=== PATIENT | female | born 1995 | race Caucasian/White ===

== ENCOUNTER 2019-02-11 19:23 | Emergency (ER) | payer OTHER ==
[2019-02-11 19:38] VITALS: BP 126/76
--- NOTE | 2019-02-11 19:52 | UC ---
Skin Complaint HPI - HPI Summary HPI Summary: 23 yo female with expanding bullseye rash on left thigh noted a couple of days ago no constitutional symptoms no know tick bite but patient states she is an outdoors person - History of Current Complaint Chief Complaint: UCSkin Time Seen by Provider: 02/11/19 19:44 Stated Complaint: RASH Hx Obtained From: Patient Onset/Duration: Gradual Onset, Lasting Days Timing: Constant Onset Severity: Mild Current Severity: Moderate Pain Intensity: 0 Pain Scale Used: 0-10 Numeric Location: Discrete Character: Redness, Raised - slightly Aggravating Factor(s): Nothing Alleviating Factor(s): Nothing Associated Signs & Symptoms: Positive: Rash - Allergy/Home Medications Allergies/Adverse Reactions: Allergies Allergy/AdvReac Type Severity Reaction Status Date / Time Sulfa (Sulfonamide Allergy Unknown Unknown Verified 02/11/19 19:38 Antibiotics) Reaction Details PMH/Surg Hx/FS Hx/Imm Hx Previously Healthy: Yes - Surgical History Surgical History: Yes Surgery Procedure, Year, and Place: eyebrow - Family History Known Family History: Positive: Cardiac Disease, Hypertension, Diabetes - Social History Alcohol Use: Daily Substance Use Type: Marijuana Smoking Status (MU): Light Every Day Tobacco Smoker Type: Cigarettes, eCigarettes Review of Systems All Other Systems Reviewed And Are Negative: Yes Constitutional: Positive: Negative Skin: Positive: Rash Eyes: Positive: Negative ENT: Positive: Negative Respiratory: Positive: Negative Cardiovascular: Positive: Negative Gastrointestinal: Positive: Negative Genitourinary: Positive: Negative Motor: Positive: Negative Neurovascular: Positive: Negative Musculoskeletal: Positive: Negative Neurological: Positive: Negative Psychological: Positive: Negative Physical Exam Triage Information Reviewed: Yes Appearance: Well-Appearing, No Pain Distress, Well-Nourished Vital Signs: Initial Vital Signs Temp 99.5 F 02/11/19 19:33 Pulse 78 02/11/19 19:33 Resp 18 02/11/19 19:33 BP 126/76 02/11/19 19:33 Pulse Ox 100 02/11/19 19:33 Vital Signs Reviewed: Yes Eyes: Positive: Conjunctiva Clear ENT: Positive: Hearing grossly normal, Uvula midline. Negative: Nasal congestion, Nasal drainage, Tonsillar swelling, Tonsillar exudate Neck: Positive: Supple, Nontender, No Lymphadenopathy Respiratory: Positive: Lungs clear, Normal breath sounds, No respiratory distress, No accessory muscle use Cardiovascular: Positive: RRR, No Murmur Musculoskeletal: Positive: ROM Intact, No Edema Neurological: Positive: Alert Psychological Exam: Normal Skin Exam: Other - 8x12 ovoid bullseye rash c/w erythema migrans Course/Dx - Diagnoses Provider Diagnosis: Lyme disease, Erythema migrans (Lyme disease) Discharge ED - Sign-Out/Discharge Documenting (check all that apply): Patient Departure All imaging exams completed and their final reports reviewed: No Studies - Discharge Plan Condition: Stable Disposition: HOME Prescriptions: DOXYcycline CAP(*) [DOXYcycline 100MG CAP(*)] 100 mg PO BID #28 cap Patient Education Materials: Lyme Disease (ED) Referrals: [facility]YSICIAN REFERRAL [Outside] - 2 Weeks - Billing Disposition and Condition Condition: STABLE Disposition: Home
== END 2019-02-11 20:02 | disposition home or self-care (01) ==
LOC: UCEAST 19:23
DX: A69.20 Lyme disease, unspecified (principal); Z88.2 Allergy status to sulfonamides
CPT/HCPCS: 99202; G0463

== ENCOUNTER 2019-04-02 12:48 | Inpatient (IN) | payer OTHER ==
--- NOTE | 2019-04-02 13:25 | ED ---
Psychiatric Complaint - HPI Summary HPI Summary: Pt is a 24 y/o F presenting to the ED brought in by EMS for a psychiatric complaint. Pts partner of many years recently broke up with her, leaving her with all of the financial responsibility for things that she cannot pay for. She tends to drive when she is having a panic attack to try and calm down, but ends up increasing her speed and having thoughts about driving off of the road. She was at her scheduled therapy appointment today when they asked what was stopping her from driving off the road, and she said the guardrail, as a morbid joke per the pt. She has been depressed throughout her life but denies any suicide attempts, hallucinations, or homicidal ideations. She has some thoughts sometimes about hurting others and herself, but does not think she would go through with it. She denies myalgia, vomiting, or diarrhea. Medications reviewed. Allergies noted. - History Of Current Complaint Chief Complaint: EDSuicidal Time Seen by Provider: 04/02/19 12:51 Hx Obtained From: Patient Onset/Duration: Gradual Onset, Lasting Days, Still Present, Worse Since - partner broke up w/ her, financial stressor Timing: Days Severity Initially: Moderate Severity Currently: Moderate Character: Depressed Aggravating Factor(s): Recent Stress Alleviating Factor(s): Nothing Associated Signs And Symptoms: Positive: Negative Related History: Positive For: Prior Psychiatric Issues Has Suicidal: Reports: Thoughts, With A Plan Has Homicidal: Denies: Thoughts Recent Stressor(s): no finances, partner broke up with her - Allergies/Home Medications Allergies/Adverse Reactions: Allergies Allergy/AdvReac Type Severity Reaction Status Date / Time Sulfa (Sulfonamide Allergy Unknown Unknown Verified 02/11/19 19:38 Antibiotics) Reaction Details Home Medications: Home Medications Estradiol (NF) 1 mg SL DAILY 04/02/19 [History Confirmed 04/02/19] Spironolactone (NF) [Spironolactone 50 MG (NF)] 50 mg PO BID 04/02/19 [History Confirmed 04/02/19] PMH/Surg Hx/FS Hx/Imm Hx Previously Healthy: Yes Endocrine/Hematology History: Denies: Hx Diabetes, Hx Thyroid Disease Cardiovascular History: Denies: Hx Hypertension Respiratory History: Denies: Hx Asthma, Hx Chronic Obstructive Pulmonary Disease (COPD) GI History: Denies: Hx Ulcer - Surgical History Surgery [facility], [facility] Infectious Disease History: No Infectious Disease History: Denies: Hx Hepatitis, Hx Human Immunodeficiency Virus (HIV), Traveled Outside the [place] in Last 30 Days - Family History Known Family History: Positive: Cardiac Disease, Hypertension, Diabetes - Social History Alcohol Use: Daily Hx Substance Use: Yes Substance Use Type: Reports: Marijuana Hx Tobacco Use: Yes Smoking Status (MU): Light Every Day Tobacco Smoker Type: Cigarettes, eCigarettes Review of Systems Negative: Vomiting, Diarrhea Negative: Myalgia Neurological: Negative - hallucinations Psychological: Other - panic attacks, some thoughts of hurting herself/others Positive: Anxious, Depressed All Other Systems Reviewed And Are Negative: Yes Physical Exam - Summary Physical Exam Summary: Constitutional: Well-developed, Well-nourished, Alert. (-) Distressed Skin: Warm, Dry HENT: Normocephalic; Atraumatic Eyes: Conjunctiva normal Neck: Musculoskeletal ROM normal neck. (-) JVD, (-) Stridor, (-) Tracheal deviation Cardio: Rhythm regular, rate normal, Heart sounds normal; Intact distal pulses; Radial pulses are 2+ and symmetric. (-) Murmur Pulmonary/Chest wall: Effort normal. (-) Respiratory distress, (-) Wheezes, (-) Rales Abd: Soft, (-) tenderness, (-) Distension, (-) Guarding, (-) Rebound Musculoskeletal: (-) Edema Lymph: (-) Cervical adenopathy Neuro: Alert, Oriented x3 Psych: Mood and affect tearful Triage Information Reviewed: Yes Vital Signs On Initial Exam: Initial Vitals Temp Pulse Resp BP Pulse Ox 98.7 F 90 18 118/74 100 04/02/19 13:03 04/02/19 13:03 04/02/19 13:03 04/02/19 13:03 04/02/19 13:03 Vital Signs Reviewed: Yes Procedures - Sedation Patient Received Moderate/Deep Sedation with Procedure: No Diagnostics - Vital Signs Vital Signs Temp Pulse Resp BP Pulse Ox 04/02/19 13:03 98.7 F 90 18 118/74 100 - Laboratory Result Diagrams: 04/02/19 13:46 Lab Statement: Any lab studies that have been ordered have been reviewed, and results considered in the medical decision making process. Re-Evaluation - Re-Evaluation 1st re-eval Re-Evaluation Time: 17:15 Change: Unchanged Comment: Pt will be voluntarily admitted as per Dr. Julien with dx of adjustment disorder. Course/Dx - Course Course Of Treatment: Patient is here with worsening depressive symptoms and suicidal thoughts. Patient was medically cleared by myself. Patient was evaluated by psychiatry who recommended voluntary admission. - Differential Dx/Clinical Impression Provider Diagnosis: Adjustment disorder Discharge ED - Sign-Out/Discharge Documenting (check all that apply): Patient Departure - Discharge Plan Condition: Stable Disposition[place] [place]illing Disposition and Condition Condition: STABLE Disposition: Psychiatric Facility [facility] [place] - Attestation Statements Document Initiated by Leolaibe: Yes Documenting Scribe: Lidia Brar Provider For Whom Harry is Documenting (Include Credential): Jsoe Johnson MD. Scribe Attestation: Lidai Hopper, scribed for Jose Johnson MD. on 04/02/19 at 1927. Scribe Documentation Reviewed: Yes Provider Attestation: The documentation as recorded by the Lidia olguin accurately reflects the service I personally performed and the decisions made by , Jose Johnson MD. Status of Scribe Document: Viewed
[2019-04-02 14:11] LABS: ALT 17 U/L (7-52); AST 25 U/L (13-39); Albumin 4.8 g/dL (3.2-5.2); Albumin/Globulin Ratio 1.8 (1-3); Alkaline Phosphatase 49 U/L (34-104); Anion Gap 5 mmol/L (2-11); BUN/Creatinine Ratio 7.1 (8-20); Blood Urea Nitrogen 7 mg/dL (6-24); CO2 Carbon Dioxide 31 mmol/L (22-32); Calcium 9.9 mg/dL (8.6-10.3); Chloride 104 mmol/L (101-111); EGFR African American 82.7 (>60); EGFR Non-African American 68.3 (>60); Globulin 2.6 g/dL (2-4); Glucose 90 mg/dL (70-100); Potassium 4.2 mmol/L (3.5-5.0); Sodium 140 mmol/L (135-145); Total Protein 7.4 g/dL (6.4-8.9)
[2019-04-02 14:16] LABS: HCG Pregnancy < 0.60 mIU/mL
[2019-04-02 14:26] LABS: Acetaminophen < 15 mcg/mL; Alcohol < 10 mg/dL (<10)
[2019-04-02 15:16] LABS: Urine Appearance Clear; Urine Bilirubin Negative (Negative); Urine Blood Negative (Negative); Urine Color Yellow; Urine Glucose Negative (Negative); Urine Ketones Negative (Negative); Urine Nitrite Negative (Negative); Urine Protein Negative (Negative); Urine Specific Gravity 1.005 (1.010-1.030); Urine Urobilinogen Negative (Negative)
[2019-04-02 15:36] LABS: Urine Benzodiazepine Screen None Detected (None Detect); Urine Opiates Screen None Detected (None Detect)
[2019-04-02] MEDS ORDERED: Acetaminophen TAB* 325 MG PO PRN (16:46)
[2019-04-02] MEDS ORDERED: Nicotine PATCH 14 MG/24 HR* PATCH TRANSDERM ONE (17:37)
[2019-04-02] MEDS: CMCS:Estradiol TAB(NF) 1 MG TAB PO SCH (21:06)
[2019-04-02] MEDS: Spironolactone TAB* 25 MG PO SCH (21:06)
[2019-04-03 08:42] LABS: HDL Cholesterol 49.6 mg/dL
[2019-04-03] MEDS: Nicotine PATCH 21 MG/24 HR* PATCH TRANSDERM SCH (08:45)
[2019-04-03] MEDS: CMCS:Estradiol TAB(NF) 1 MG TAB PO SCH ×2 (08:45→21:41)
[2019-04-03] MEDS: Spironolactone TAB* 25 MG PO SCH ×2 (08:47→20:35)
[2019-04-03] MEDS: Nicotine* 2MG (FRUIT FLAVOR) GUM PO PRN ×2 (15:05→18:44)
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
[2019-04-03] MEDS: traZODone TAB* 50 MG TAB PO SCH (20:35)
[2019-04-03] MEDS: Nicotine Patch Removal NOTE PATCH OFF SCH (21:13)
[2019-04-04] MEDS: CMCS:Estradiol TAB(NF) 1 MG TAB PO SCH ×2 (08:35→20:43)
[2019-04-04] MEDS: Spironolactone TAB* 25 MG PO SCH ×2 (08:35→20:43)
[2019-04-04] MEDS: Nicotine* 2MG (FRUIT FLAVOR) GUM PO PRN ×4 (08:35→19:11)
[2019-04-04] MEDS: Nicotine PATCH 21 MG/24 HR* PATCH TRANSDERM SCH (08:36)
--- NOTE | 2019-04-04 12:55 | PN ---
Subjective - Subjective Date of Service: 04/04/19 Service Type: [id number] Hosp care 15 min low complexity Subjective: Patient endorses anxiety and is circumstantial about interactions with Tia, partner of nearly 7 years. Patient is voicing vague violent ideation and passive wish. She reports feeling safe on the unit. She is encouraged to complete MMPI prior to further medication recommendations. Objective - General Observations Appearance: Unkempt Stature: Thin Posture: WNL Eye Contact: Average Behavior/Activity: WNL - Interaction Observations Attitude Towards Examiner: Cooperative Stated Mood: Dysphoric Affect: Full Speech Pattern/Tone: Clear, Appropriate, Normal Volume Thought Process: Circumstantial Perception: WNL Thought Content: Preoccupation/Ruminations, Depressive, Self-Deprecatory Thought Process: Lethality: Passive Wish Hallucination Type: Denies Delusion Type: Denies - Cognitive Function Orientation: A&O x 4 Level of Consciousness: Alert Cognition: WNL Estimated Intelligence: Normal Insight: Mostly Blames Others for Problems Judgment Within Normal Limits: No Ability to Make Reasonable Decisions: Moderately Impaired - Medication Compliance Cooperative with Inpatient Medication Regimen: Yes - Group Participation Participates in Group Activities: Yes Assessment - Assessment Merits Inpatient Hospitalization: For Immediate Safety, For Stabilization, Diagnosis Determination Inpatient DSM-V Dx: F33.8 Clinical Impression: 24yo white, transgender male to female, tenuously domiciled, unemployed who presented to ED with SI/HI/. Her partner of nearly 7 years suddenly broke up with her and now she must find her own housing and income. She is working on an MMPI for diagnostic clarification. She merits hospitalization for immediate safety and stabilization. Plan - Plan Treatment Plan: Name: KEEGAN BETH Birthdate: 1995 [id number] continue acute intensive psychiatric treatment. may decrease to q30min and allow staff pass/computer use per RN discretion. start clonidine 0.1mg BID prn anxiety and trazodone 50mg qhs prn insomnia. awaiting MMPI results. Continued Medication Management: Start Medication Medications: Current Medications Acetaminophen (Tylenol Tab*) 650 mg PO Q4H PRN PRN Reason: for pain; or Temp >101 F Al Hydrox/Mg Hydrox/Simethicone (Maalox Plus*) 30 ml PO Q4H PRN PRN Reason: INDIGESTION Clonidine HCl (Catapres Tab*) 0.1 mg PO BID PRN PRN Reason: ANXIETY Estradiol (Estradiol Tab(Nf)) 1 mg PO BID [facility] Last Admin: 04/04/19 08:35 Dose: 1 mg Nicotine (Nicotine Patch 21 Mg/24 Hr*) 1 patch TRANSDERM DAILY [facility] Last Admin: 04/04/19 08:36 Dose: Not Given Nicotine Polacrilex (Nicotine Gum*) 2 mg PO Q2H PRN PRN Reason: CRAVING Last Admin: 04/04/19 08:35 Dose: 2 mg Pharmacy Profile Note (Nicotine Patch Removal Note*) 1 note PATCH OFF 2099 [facility] Last Admin: 04/03/19 21:13 Dose: 1 note Spironolactone (Aldactone Tab*) 50 mg PO BID [facility] Last Admin: 04/04/19 08:35 Dose: 50 mg Trazodone HCl (Desyrel Tab*) 50 mg PO BEDTIME [facility] Last Admin: 04/03/19 20:35 Dose: 50 mg - Discharge Plan Discharge Plan: Inpatient Hospitalization
[2019-04-04] MEDS: cloNIDine TAB* 0.1 MG PO PRN (15:58)
[2019-04-04] MEDS: traZODone TAB* 50 MG TAB PO SCH (20:43)
[2019-04-04] MEDS: Nicotine Patch Removal NOTE PATCH OFF SCH (21:24)
[2019-04-05] MEDS: Spironolactone TAB* 25 MG PO SCH ×2 (09:31→21:10)
[2019-04-05] MEDS: cloNIDine TAB* 0.1 MG PO PRN ×2 (09:32→18:02)
[2019-04-05] MEDS: CMCS:Estradiol TAB(NF) 1 MG TAB PO SCH ×2 (09:33→21:10)
[2019-04-05] MEDS: Nicotine PATCH 21 MG/24 HR* PATCH TRANSDERM SCH (09:33)
[2019-04-05] MEDS: Nicotine* 2MG (FRUIT FLAVOR) GUM PO PRN ×4 (09:35→17:57)
[2019-04-05] MEDS: Al Hydrox/Mg Hydrox/Simet LIQ* 30 ML UDC PO PRN (21:11)
[2019-04-05] MEDS: traZODone TAB* 50 MG TAB PO SCH (21:11)
[2019-04-05] MEDS: Nicotine Patch Removal NOTE PATCH OFF SCH (21:12)
[2019-04-06] MEDS: Nicotine* 2MG (FRUIT FLAVOR) GUM PO PRN ×3 (07:49→18:05)
[2019-04-06] MEDS: Spironolactone TAB* 25 MG PO SCH ×2 (09:00→21:02)
[2019-04-06] MEDS: cloNIDine TAB* 0.1 MG PO PRN ×2 (09:00→17:57)
[2019-04-06] MEDS: CMCS:Estradiol TAB(NF) 1 MG TAB PO SCH ×2 (09:02→21:02)
[2019-04-06] MEDS: Nicotine PATCH 21 MG/24 HR* PATCH TRANSDERM SCH (09:04)
[2019-04-06] MEDS: Al Hydrox/Mg Hydrox/Simet LIQ* 30 ML UDC PO PRN (17:57)
[2019-04-06] MEDS: traZODone TAB* 50 MG TAB PO SCH (21:02)
[2019-04-06] MEDS: Nicotine Patch Removal NOTE PATCH OFF SCH (21:35)
[2019-04-07] MEDS: Nicotine* 2MG (FRUIT FLAVOR) GUM PO PRN ×5 (04:45→17:56)
[2019-04-07] MEDS: Nicotine PATCH 21 MG/24 HR* PATCH TRANSDERM SCH (09:19)
[2019-04-07] MEDS: Spironolactone TAB* 25 MG PO SCH ×2 (09:20→20:41)
[2019-04-07] MEDS: CMCS:Estradiol TAB(NF) 1 MG TAB PO SCH ×2 (09:20→21:42)
[2019-04-07] MEDS: cloNIDine TAB* 0.1 MG PO PRN (11:55)
--- NOTE | 2019-04-07 16:32 | PN ---
Subjective - Subjective Date of Service: 04/07/19 Service Type: 06857 Hosp care 25 min moderate complexity Subjective: Keegan continues to verbalize violent thoughts towards her Ex-BF and thinks about setting his car on fire. Also complains of racing thoughts, poor attention and concentration. Otherwise appears happy in the milieu with peers. Willing to consider mood stabilizer. [place] wasn't a good choice due to taking antidiuratics. Objective - General Observations Appearance: Unkempt Appears Stated Age: Yes Stature: Thin, Short Posture: WNL Eye Contact: Average Behavior/Activity: Accelerated - Interaction Observations Attitude Towards Examiner: Cooperative Stated Mood: Elevated, Expansive Affect: Bright Speech Pattern/Tone: Clear, Appropriate Thought Process: Coherent, Goal Directed Perception: WNL Thought Content: WNL Thought Process: Lethality: Homicidal Ideation Hallucination Type: Denies Delusion Type: Denies - Cognitive Function Orientation: A&O x 4 Level of Consciousness: Awake, Alert, Appropriate Cognition: WNL Estimated Intelligence: Normal Insight: Mostly Blames Others for Problems Judgment Within Normal Limits: No Ability to Make Reasonable Decisions: Serverely Impaired - Medication Compliance Cooperative with Inpatient Medication Regimen: Yes - Group Participation Participates in Group Activities: Yes Assessment - Assessment Merits Inpatient Hospitalization: For Immediate Safety, For Stabilization, For Ongoing Evaluation, Pending Safe DC Plan Inpatient DSM-V Dx: F33.8 Clinical Impression: 24yo white, transgender male to female, tenuously domiciled, unemployed who presented to ED with SI/HI/. Her partner of nearly 7 years suddenly broke up with her and now she must find her own housing and income. She is working on an MMPI for diagnostic clarification. She merits hospitalization for immediate safety and stabilization. Plan - Plan Treatment Plan: Name: KEEGAN BETH Birthdate: 1995 [id number] continue acute intensive psychiatric treatment. may decrease to q30min and allow staff pass/computer use per RN discretion. start clonidine 0.1mg BID prn anxiety and trazodone 50mg qhs prn insomnia. awaiting MMPI results. Continued Medication Management: Start Medication Medications: Current Medications Acetaminophen (Tylenol Tab*) 650 mg PO Q4H PRN PRN Reason: for pain; or Temp >101 F Al Hydrox/Mg Hydrox/Simethicone (Maalox Plus*) 30 ml PO Q4H PRN PRN Reason: INDIGESTION Last Admin: 04/06/19 17:57 Dose: 30 ml Clonidine HCl (Catapres Tab*) 0.1 mg PO BID PRN PRN Reason: ANXIETY Last Admin: 04/07/19 11:55 Dose: 0.1 mg Divalproex Sodium (Depakote Dr Tab(*)) 250 mg PO BID [facility] Estradiol (Estradiol Tab(Nf)) 1 mg PO BID [facility] Last Admin: 04/07/19 09:20 Dose: 1 mg Nicotine (Nicotine Patch 21 Mg/24 Hr*) 1 patch TRANSDERM DAILY [facility] Last Admin: 04/07/19 09:19 Dose: Not Given Nicotine Polacrilex (Nicotine Gum*) 2 mg PO Q2H PRN PRN Reason: CRAVING Last Admin: 04/07/19 14:47 Dose: 2 mg Pharmacy Profile Note (Nicotine Patch Removal Note*) 1 note PATCH OFF 2100 [facility] Last Admin: 04/06/19 21:35 Dose: Not Given Spironolactone (Aldactone Tab*) 50 mg PO BID [facility] Last Admin: 04/07/19 09:20 Dose: 50 mg Trazodone HCl (Desyrel Tab*) 50 mg PO BEDTIME [facility] Last Admin: 04/06/19 21:02 Dose: 50 mg - Discharge Plan Discharge Plan: Outpatient Follow Up Outpatient Program: [facility]
[2019-04-07] MEDS: traZODone TAB* 50 MG TAB PO SCH (20:41)
[2019-04-07] MEDS: Divalproex DR TAB(*) 250 MG PO SCH (20:41)
[2019-04-07 20:47] VITALS: BP 108/64
[2019-04-07] MEDS ORDERED: Lithium Carbonate ER* 450 MG TAB.ER PO SCH (21:00)
[2019-04-07] MEDS: Nicotine Patch Removal NOTE PATCH OFF SCH (21:42)
[2019-04-08] MEDS: Nicotine* 2MG (FRUIT FLAVOR) GUM PO PRN ×2 (02:20→09:09)
[2019-04-08] MEDS: Nicotine PATCH 21 MG/24 HR* PATCH TRANSDERM SCH (08:57)
[2019-04-08] MEDS: Spironolactone TAB* 25 MG PO SCH (08:57)
[2019-04-08] MEDS: CMCS:Estradiol TAB(NF) 1 MG TAB PO SCH (08:58)
[2019-04-08] MEDS: Divalproex DR TAB(*) 250 MG PO SCH (08:58)
[2019-04-08] MEDS ORDERED: Escitalopram * 10 MG TAB PO SCH (11:00)
--- NOTE | 2019-04-10 18:43 | DS ---
CC: Dr. Gandhi; [facility] * DISCHARGE SUMMARY: DATE OF ADMISSION: 04/02/19 DATE OF DISCHARGE: 04/08/19 SUPERVISING PHYSICIAN: Bladimir Julien MD * (DICTATED BY TYLER DUEÑAS NP) DISCHARGE DIAGNOSES: Major depressive disorder and adjustment disorder with disturbance of emotions and conduct. CONDITION AT TIME OF DISCHARGE: Improved. The patient is euthymic with bright affect. She has been participating fully in unit programming and leisure activity. She is noted to be social, interactive with peers and generally pleasant to be around. She denied suicidal ideation. She has made statements in regards to violent ideation towards her ex-girlfriend for example she made statements of wanting to set her car on fire. The patient reported that these were just thoughts and was observed to interact positively with this woman when she visited. Tia was notified of the patient's statement and was not concerned and expressed that this is not a new occurrence. The patient reports desire to be discharged and is agreeable to recommendations to continue with therapy and with primary care provider. The patient is discharged to home. MENTAL STATUS EXAM: Karen payan goes by Trinidad is a 24-year-old transgender male to female who appears slightly younger than stated age. She is well groomed with long dreadlocked hair. She has meticulous eye makeup and is casually dressed in her own clothing. She is alert and oriented x3. Eye contact is good. Speech is soft, articulate and spontaneous. Concentration good. Memory 3/3. Mood is euthymic with bright affect. No abnormal psychomotor activity noted. Thought process is logical and goal directed and coherent. Thought content is negative for suicidal ideation or passive wish. She denies HI or . She denies auditory or visual hallucinations. There is no delusional thought content noted throughout her hospitalization. Insight and judgment are fair, improved. She appears to have average intellect and her fund of knowledge is adequate. Instruction given to patient: A. Medications: 1. Escitalopram 10 mg p.o. daily. 2. Trazodone 50 mg p.o. bedtime. 3. Clonidine 0.1 mg p.o. daily. 4. She will resume Spironolactone 50 mg p.o. b.i.d. along with estradiol 1 mg b.i.d. B. Diet: Regular. C. Activity: Ambulation as tolerated. She declines tobacco cessation assistance. There are no pending labs or diagnostic studies. D. Followup care: The patient will return to [facility] and has already done so at the time of this dictation. She will return to Dr. Gandhi for primary care next appointment on 04/15/19. E. Substance use followup is not applicable. HOSPITAL COURSE: Part A. Reason for admission: The patient presented to the emergency department after an appointment with her outpatient therapist where she disclosed suicidal ideation and various plans. HISTORY OF PRESENT ILLNESS: Karen. who prefers to go by Trinidad. is a 24-year- old transgender male to female tenuously domiciled unemployed who presented to the emergency department after an appointment with [facility] therapist Marion Noyola. The patient has been transitioning since approximately age 16 or 17. She legally changed her name from Jim to Karen. She reports she has been partnered with a woman named Amy for nearly 7 years. She states that Amy broke up with her out of the blue around her own birthday, which was [birth year]. The patient reports she did not have any precursor that this was happening. She states that Amy stopped her own medicines about a month ago and was also taking prednisone for asthma and in the past Amy has been unlike herself when doing the same. She states she is not sure why Amy broke up with her and that all of her reasons have been changing. Trinidad has been a co-parent for Amy's daughter Deloris who is now almost 4 years old. The patient states that she has been primarily a [id number] parent and today was planning to turn in resumes and job applications and go to [facility] for services, however, she was transported to the emergency department due to suicidal ideation. She states she started seeing a therapist at [facility] last week and has had 3 appointments. Yesterday, she was not able to participate in safety planning. She denies suicide attempt. She reports that she has had suicidal ideation intermittently since fifth grade and endorses being diagnosed with depression at that time. She reports a history of insomnia since childhood. She endorses daily panic attacks, racing thoughts that she describes are as fast as machine gun fire. She reports recent hypersomnia and other times frequent waking. She states that she has had decreased appetite and weight loss especially when stressed and that she is prone to ulcers. She has a history of self-harm behaviors including cutting herself and burning herself with cigarettes from age 13 to 17. As stated above, she started dating Tia nearly 7 years ago. She identifies Tia as someone who provided stability for her and she was less symptomatic during this relationship. She is now overwhelmed and fearful as she is unsure of the future of her whereabouts and her family. She denies auditory or visual hallucination. She denies eating disorder, behaviors. She denies obsessions or rituals. In the emergency department, she reported thoughts of wanting to harm her ex by lighting fires. She continued to make these kind of statements throughout her hospitalization, would deny intent when asked about them. Part B. Psychiatric treatment rendered: The patient was admitted to adult behavioral services unit on voluntary status. Code status is full. She was placed on 15 minute checks for safety. She eagerly participated in supportive milieu individual sessions with staff and psychoeducational groups. The patient slowly worked on an MMPI for many days. She was agreeable to start trazodone to assist with sleep and was offered clonidine as needed for panic. As stated above she was very interactive with staff and peers. She went to and participated in groups. She was social during leisure times and unstructured times. She was often circumstantial about her girlfriend Tia and intrusive in regards to other people's treatment on the unit. She was receptive to therapeutic suggestions such as focusing on her own treatment and identifying her own thoughts and emotions. The patient reported anxiety in regards to outside social stressors including wanting to do obtain employment and find her own housing. She identified that she was able to benefit from hospitalization by identifying more coping skills and being introduced to mindfulness. The patient endorsed some symptoms of bipolarity and the weekend psychiatrist started a dose of Depakote. The following day on the day of discharge the patient agreed to change to escitalopram as she had had 1 trial of an SSRI in the past. This freelance writer recommended to her to continue this medication until meeting with the psychiatrist at [facility]. The patient reported readiness for discharge and requested to be able to leave on the day . She stated understanding that the clinic was not open in order to obtain mental health appointments due to it being a federal holiday and agreed to be notified of appointments the following day. TYLER DUEÑAS, CAKE CUTTER MACHINE [id number]/[facility] #: [id number] [facility] HEALTH SYSTEMFausto
== END 2019-04-08 10:49 | disposition home or self-care (01) | DRG 885 ==
LOC: ED 12:48 → BSU 16:46
PROVIDERS: ADMIT Psychiatry & Neurology Psychiatry; ATTEND Psychiatry & Neurology Psychiatry
DX: F33.8 Other recurrent depressive disorders (principal); R45.851 Suicidal ideations; G40.802 Other epilepsy, not intractable, without status epilepticus; Z79.899 Other long term (current) drug therapy; Z81.1 Family history of alcohol abuse and dependence; Z81.8 Family history of other mental and behavioral disorders; Z79.890 Hormone replacement therapy
CPT/HCPCS: 36415; 80053; 80061; 80307; 80320; 80329; 81003; 83036; 84702; 86618; 99222; 99231; 99232; 99238; 99284; A9270-GY; G0480